=== PATIENT | female | born 1950 | race Two or more races ===

== ENCOUNTER 2022-11-09 10:56 | Emergency (ER) | payer MEDICAID ==
[~2022-11-09] VITALS: Ht 154.9 cm; Wt 56.7 kg
--- NOTE | 2022-11-09 11:10 | NUR ---
RECEIVED PT 72 YRS FEMALE CAME BY ALEXANDRA FROM PHYSICTION OFFICE FOR EVALUATION OF NEW ONCET A.FIB AWAKE AND ALERT RESPIRATION SPONT AND EASY NO CHEST PAIN NOTED
--- NOTE | 2022-11-09 11:30 | NUR ---
SEEN BY DR. CHAPMAN
--- NOTE | 2022-11-09 11:45 | NUR ---
BLOOD DROW BY LAB TACH
[2022-11-09 11:59] LABS: BASOPHILS % (AUTO) 0.7 % (0.0-2.0); EOSINOPHILS % (AUTO) 0.5 % (0.0-6.0); HEMATOCRIT 45 % (33-45); HEMOGLOBIN 14.6 g/dL (11.5-14.8); LYMPHOCYTES # (AUTO) 2.3 K/uL (0.8-4.8); LYMPHOCYTES % (AUTO) 35.6 % (20.0-44.0); MEAN CORPUSCULAR HGB CONC 33 g/dl (31.0-36.0); MEAN CORPUSCULAR VOLUME 89 fL (82-100); MONOCYTES # (AUTO) 0.3 K/uL (0.1-1.30); MONOCYTES % (AUTO) 5.1 % (2.0-12.0); NEUTROPHILS # (AUTO) 3.7 K/uL (1.8-8.9); NEUTROPHILS % (AUTO) 58.1 % (43.0-81.0); PLATELET COUNT (AUTO) 200 K/uL (150-450); RED BLOOD CELL COUNT(AUTO) 4.99 MIL/uL (4.0-5.2); WHITE BLOOD COUNT (AUTO) 6.3 K/uL (4.3-11.0)
[2022-11-09] MEDS ORDERED: IV NS 0.9% 1,000 ML BAG IV ONE (12:00)
[2022-11-09 12:09] LABS: CALCIUM, SERUM 9.3 mg/dL (8.5-10.1); CARBON DIOXIDE 30 mmol/L (21-32); CHLORIDE 106 mmol/L (98-107); CREATININE 0.8 mg/dL (0.6-1.3); GLUCOSE 125 mg/dL (74-106); POTASSIUM 3.9 mmol/L (3.5-5.1); SODIUM SERUM 140 mmol/L (136-145); UREA NITROGEN, BLOOD 7 mg/dL (7-18)
[2022-11-09 12:15] LABS: ALANINE AMINOTRANSFERASE 43 U/L (12-78); ALKALINE PHOSPHATASE 105 U/L (46-116); ASPARTATE AMINOTRANSFERASE 28 U/L (15-37); BILIRUBIN,DIRECT 0.2 mg/dL (0.0-0.2); BILIRUBIN,TOTAL 0.7 mg/dL (0.2-1.0); LIPASE 54 U/L (73-393); TOTAL PROTEIN, SERUM 7.6 g/dL (6.4-8.2)
--- NOTE | 2022-11-09 13:15 | NUR ---
RESTING AND COMFORTABLE
--- NOTE | 2022-11-09 14:25 | NUR ---
UA SENT TO LAB
--- NOTE | 2022-11-09 14:30 | NUR ---
To ct scan
[2022-11-09] MEDS ORDERED: IOHEXOL-300 100 ML VIAL IV ONE (14:32)
[2022-11-09] MEDS ORDERED: IV NS 0.9% 250 ML IV ONE (14:32)
[2022-11-09 14:53] LABS: BILIRUBIN,URINE NEGATIVE (NEGATIVE); COLOR,URINE YELLOW (YELLOW); LEUKOCYTE ESTERASE ,URINE 1+ (NEGATIVE); NITRITE, URINE NEGATIVE (NEGATIVE); PROTEIN,URINE NEGATIVE (NEGATIVE); UGLUCOSE NEGATIVE (NEGATIVE); UROBILINOGEN,URINE 0.2 EU/dL (0.2)
--- NOTE | 2022-11-09 15:12 | NUR ---
EKG MONITER showing and ekg nsr dineses chest pain or sob
[2022-11-09 15:20] LABS: BACTERIA,URINE 2+ /HPF (None Seen); RBC,URINE 0-2 /HPF (0-2)
[2022-11-09 15:21] LABS: MUCUS,URINE Few /LPF (None Seen)
[2022-11-09] MEDS ORDERED: CEPH500C2 PO (15:54)
[2022-11-09] MEDS ORDERED: IBUP-1955 PO (15:55)
[2022-11-09] MEDS ORDERED: KETOROLAC TROMETHAMINE INJ 30 MG/ML VIAL IV ONE (16:00)
[2022-11-09] MEDS ORDERED: CEFTRIAXONE 1 G in IV D5W 50 ML IV ONE (16:00)
[2022-11-09] MEDS ORDERED: IV NS 0.9% 1,000 ML IV ONE (16:00)
[2022-11-09] MEDS ORDERED: LORAZEPAM INJ 2 MG/ML VIAL ONE (16:13)
[2022-11-09] MEDS ORDERED: KETOROLAC TROMETHAMINE 15 MG/ML VIAL ONE (16:13)
[2022-11-09] MEDS ORDERED: CEFTRIAXONE 1GM BAG (ER ONLY) 50 ML IV ONE (16:13)
--- NOTE | 2022-11-09 16:20 | NUR ---
GRAND MARYSOL BLUE AT BED SIDE CONDITION UNDERSTOOD
[2022-11-09] MEDS ORDERED: LORAZEPAM INJ 2 MG/ML VIAL IV ONE (16:30)
--- NOTE | 2022-11-09 17:00 | NUR ---
ROCEPHIN 1 GM IVPG INFUSED NO REACTION PT TOLORATED
--- NOTE | 2022-11-09 17:50 | NUR ---
IV removed. Catheter intact and site benign. Pressure and 4x4 applied to site. No bleeding noted.
--- NOTE | 2022-11-09 17:55 | NUR ---
Patient discharged to home in stable condition. Written and verbal after care instructions given. Patient verbalizes understanding of instruction.
[2022-11-09 18:35] VITALS: BP 144/72
== END 2022-11-09 18:36 | disposition home or self-care (01) ==
LOC: ER 11:08
DX: N39.0 Urinary tract infection, site not specified (principal); N83.201 Unspecified ovarian cyst, right side; I10 Essential (primary) hypertension; E11.9 Type 2 diabetes mellitus without complications; Z79.899 Other long term (current) drug therapy
CPT/HCPCS: 99285; 74177; 96365; 96375; 96361; 93005; 85025; 80048; 87086; 83690; 80076; 81001; 36415; 84484; J2060; J0696 ×2; J7060; J7030 ×2; J7050; Q9967; J1885